=== PATIENT | male | born 1965 | race Hispanic/Latino ===

== ENCOUNTER → 2023-04-25 | Outpatient (CLI) | payer OTHER ==
[~2023-04-25] MED LIST: AMLO5TAB4 PO; ASPI-1443 PO; ATOR40TA71 PO; CARV12.580 PO; CLOP75TA32 PO; ESCI5TAB16 PO; HYDR25TA PO; LISI20TA24 PO; SPIR25TA6 PO; TICA90TA PO
[2023-04-25 11:46] LABS: CREATININE 1.3 mg/dL (0.5-1.5)
== END | disposition home or self-care (01) ==
LOC: LAB 10:55
PROVIDERS: ATTEND Student in an Organized Health Care Education/Training Program
DX: I25.10 Atherosclerotic heart disease of native coronary artery without angina pectoris (principal)
CPT/HCPCS: 36415; 80048

== ENCOUNTER → 2023-05-12 | Outpatient (CLI) | payer OTHER ==
[~2023-05-12] MED LIST changes: +IOHEXOL-350 75 ML VIAL IV ONE
== END | disposition home or self-care (01) ==
LOC: RAH 08:55
PROVIDERS: ATTEND Student in an Organized Health Care Education/Training Program
DX: R91.1 Solitary pulmonary nodule (principal); J44.9 Chronic obstructive pulmonary disease, unspecified; R06.02 Shortness of breath; M47.815 Spondylosis without myelopathy or radiculopathy, thoracolumbar region; M41.84 Other forms of scoliosis, thoracic region; I51.7 Cardiomegaly
CPT/HCPCS: 71270; Q9967

== ENCOUNTER → 2023-07-02 | Outpatient (CLI) | payer OTHER ==
[~2023-07-02] MED LIST changes: +IOHEXOL 350 MG/ML 100ML INFUS..BTL IV ONE; -IOHEXOL-350 75 ML VIAL IV ONE; +METOPROLOL TARTRATE 1 MG/ML 5ML VIAL IV ONE
== END | disposition home or self-care (01) ==
LOC: RAH 09:48
PROVIDERS: ATTEND Student in an Organized Health Care Education/Training Program
DX: I25.10 Atherosclerotic heart disease of native coronary artery without angina pectoris (principal); R06.00 Dyspnea, unspecified; R07.9 Chest pain, unspecified; Z95.1 Presence of aortocoronary bypass graft
CPT/HCPCS: 75574; J3490; Q9967

== ENCOUNTER 2024-11-02 05:42 | Day surgery (SDC) | payer OTHER ==
[2024-10-29 09:12] VITALS: BP 148/95; PULSE 74; RESP 16; TEMP 97.6
[2024-10-29 09:15] LABS: BASOPHILS # (AUTO) 0.05 K/uL (0.00-0.20); BASOPHILS % (AUTO) 0.8 % (0.0-5.0); EOSINOPHILS % (AUTO) 4.8 % (0.0-8.0); HEMATOCRIT 38.4 % (42-54); IMMATURE GRANULOCYTE ABSOLUTE 0.03 K/uL (0-1); LYMPHOCYTES # (AUTO) 2.3 K/uL (1.0-4.8); LYMPHOCYTES % (AUTO) 36.4 % (21.0-51.0); MEAN CORPUSCULAR HEMOGLOBIN 26.5 pg (27.0-33.0); MEAN CORPUSCULAR HGB CONC 34.4 g/dL (32.0-36.0); MEAN CORPUSCULAR VOLUME 77.1 fL (79-99); MONOCYTES # (AUTO) 0.5 K/uL (0.1-1.0); MONOCYTES % (AUTO) 8.2 % (3.0-13.0); NEUTROPHILS # (AUTO) 3.1 K/uL (1.8-7.7); NEUTROPHILS % (AUTO) 49.3 % (40.0-77.0); PLATELET COUNT (AUTO) 154 K/uL (130-400); RED BLOOD CELL COUNT(AUTO) 4.98 MIL/uL (4.50-6.20); RED CELL DISTRIBUTION WIDTH 12.8 % (11.0-15.5); WHITE BLOOD COUNT (AUTO) 6.2 K/uL (4.8-10.8)
[2024-10-29 09:16] LABS: ADD UA MICROSCOPIC NO; APPEARANCE,URINE CLEAR (CLEAR); BILIRUBIN,URINE NEGATIVE (NEGATIVE); COLOR,URINE LIGHT-YELLOW (YELLOW); GLUCOSE, URINE (UA) NEGATIVE (NEGATIVE); KETONES,URINE NEGATIVE (NEGATIVE); LEUKOCYTE ESTERASE ,URINE NEGATIVE Leu/uL (NEGATIVE); NITRATE,URINE NEGATIVE (NEGATIVE); OCCULT BLOOD,URINE NEGATIVE (NEGATIVE); PROTEIN,URINE NEGATIVE (NEGATIVE); UROBILINOGEN,URINE 0.2 mg/dL (0.2-1.0)
[2024-10-29 09:22] LABS: CREATININE 1.4 mg/dL (0.5-1.3); POTASSIUM 4.1 mmol/L (3.5-5.1)
[2024-10-29 09:25] LABS: INR 1.03 (0.85-1.15); PROTHROMBIN TIME 10.9 SEC (9.6-11.6)
[2024-10-29 09:26] LABS: PARTIAL THROMBOPLASTIN TIME 26.6 SEC (26.3-35.5)
[2024-10-29 09:43] LABS: B-TYPE NATRIURETIC PEPTIDE 13 pg/mL (0-100)
--- NOTE | 2024-10-29 09:45 | HMCIMG ---
Exam Type: CHEST 1VW Clinical Information: PRE OP Comparison: None Findings: There is status post median sternotomy. The lungs are clear of infiltrates. The heart is normal in size. Impression: Clear lungs.
--- NOTE | 2024-10-29 13:03 | EKG ---
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
--- NOTE | 2024-11-01 09:12 | NUR ---
RE: LABS REPORTED BMP RESULTS TO DR MIKE DOWNS, NO NEW ORDER RECEIVED.
[~2024-11-02] VITALS: Ht 180.3 cm; Wt 105.0 kg
[2024-11-02] VITALS (9 sets, daily range): BP systolic 136–169; BP diastolic 95–113; PULSE 67–81; RESP 9–19; TEMP 97.3–97.9
[~2024-11-02 05:42] MED LIST changes: +AMLO-258 PO; -AMLO5TAB4 PO; +CARV12.511 PO; -CARV12.580 PO; -CLOP75TA32 PO; -ESCI5TAB16 PO; -IOHEXOL 350 MG/ML 100ML INFUS..BTL IV ONE; +ISOS30TA92 PO; -METOPROLOL TARTRATE 1 MG/ML 5ML VIAL IV ONE; +RANO500T6 PO; -TICA90TA PO
[2024-11-02] MEDS: 0.9%NACL 1000ML 1,000 ML IV SCH (06:36)
[2024-11-02] MEDS ORDERED: LIDOCAINE HCL 400MG/20ML VIAL ONE (07:10)
[2024-11-02] MEDS ORDERED: VERAPAMIL HCL 2.5 MG/ML VIAL ONE (07:10)
[2024-11-02] MEDS ORDERED: HEParin 10,000 UNIT/10ML (1,000 UNIT/ML) VIAL ONE (07:10)
[2024-11-02] MEDS ORDERED: IOHEXOL 350 MG/ML 100ML INFUS..BTL IV ONE ×4 (07:10→09:21)
[2024-11-02] MEDS ORDERED: HEParin-NS 1,000 UNIT/500 ML 1,000 ML IV ONE (07:11)
[2024-11-02] MEDS ORDERED: NITROGLYCERIN 50MG VIAL ONE (07:12)
[2024-11-02] MEDS ORDERED: FENTanyl CITRate PF 50 MCG/1 ML 2ML VIAL ONE (07:23)
[2024-11-02] MEDS ORDERED: MIDAZOLAM HCL 1 MG/ML 2ML VIAL ONE ×3 (07:23→09:18)
[2024-11-02] MEDS ORDERED: HEParin-NS 1,000 UNIT/500 ML 500 ML IV ONE (08:24)
[2024-11-02] MEDS ORDERED: DOPamine HCL 400 MG/D5%-WATER 0 ML IV ONE (08:59)
[2024-11-02] MEDS ORDERED: cloPIDOgrel 300MG TAB ONE (09:17)
--- NOTE | 2024-11-02 09:50 | PRN ---
PROCEDURE REPORT DATE OF PROCEDURE: Nov 02, 2024 GENERATING STATION MECHANIC: [Mike dhillon MD ] PROCEDURE PERFORMED: Conscious sedation Ultrasound guided right femoral artery access Left heart catheterization Selective left coronary artery angiogram Selective right coronary artery angiogram Selective NULL angiogram Selective SVG to D1 angiogram Selective SVG to RCA angiogram IFR of the left circumflex (1.00 with no drift) Status post successful PTCA/PCI of the prox and mid ramus x2 (2.25 x 18 and 2.25 x 15 mm genoveva Toledo drug-eluting stent) Selective right femoral artery angiogram Perc-Closure device right femoral artery INDICATION: Refractory Angina DESCRIPTION OF PROCEDURE: After informed consent was obtained, the patient was prepped and draped in the usual sterile fashion. A 7 Togolese arterial sheath was inserted in the right femoral artery using a micropuncture technique and ultrasound guidance with first pass wall puncture. This was performed after fluoroscopic identification of bony landmarks to facilitate a more accurate puncture of the right common femoral artery. The arterial sheath was aspirated and flushed. A 6 Togolese JL-4 was then advanced to the ascending aorta over an exchange length J-tip guidewire, was aspirated and flushed, and was used for selective coronary angiograms in multiple obliquities. A JR-4 was advanced in a similar fashion to the ascending aorta over the J-tipped guidewire and was used for selective right coronary angiograms in multiple oblique views with findings as outlined below. The JR-4 catheter advanced into the LV and pressures were obtained with a pull- back across the aortic valve. We then used the JR4 catheter to select engage the SVG to RCA graft followed by angiographic images. We used the JR4 catheter select engage the SVG to D1 graft which was found to be occluded. We then used the JR4 catheter to selectively engage the left subclavian and then we exchanged the JR4 catheter for a five Togolese IM catheter which was used to select engage the NULL graft followed by multiple angiographic images. Following review of the images decision was made to further interrogate patient's moderate mid circumflex stenosis. We exchanged the diagnostic catheters for a seven Togolese XB 3.5 guide catheter which was advanced over the wire similar fashion used to engage the left main coronary artery. We provided intracoronary nitroglycerin and We then advanced an IFR wire and following normalization we traversed the lesion and performed hemodynamic assessment revealing an IFR of 1.00 with no drift and 1.01 with no drift. At this time decision was made to intervene on patient's critical ramus intermedius stenosis. We removed the IFR wire and advanced a 014 Prowater into the distal ramus intermedius. We pre-dilated the prox ramus intermedius using a 2.0 x 15 mm compliant balloon to nominal pressures. We deployed a 2.25 x 18 mm genoveva Toledo drug-eluting stent in the proximal ramus intermedius to nominal pressures. This was then post dilated with a 2.5 x 15 mm noncompliant balloon to nominal pressures. We noted a distal dissection caused by the wire so we advanced the FineCross microcatheter over the wire and performed a distal tip injection to confirm we are true lumen. We then exchanged the Prowater for a run-through wire and advanced it into the distal ramus intermedius and then we removed the FineCross microcatheter. We then direct stented the mid to distal ramus intermedius using a 2.25 x 15 mm genoveva Toledo drug-eluting stent to nominal pressures. This was then post dilated using a 2.25 x 15 mm noncompliant balloon to nominal pressures. We provided additional intracoronary nitroglycerin and final angiogram revealed anglican of brisk flow/KATJA three flow with no dissections or perforations. At this time all wires and catheters removed from the body. A right common femoral angiogram was performed as a suitability for closure suture closure and the Perclose device was deployed in standard fashion. Perclose suture closure was accessed without bleeding or hematoma. The patient tolerated the procedure well and was returned to the holding area in stable condition. FLUOROSCOPY TIME: 30.2 min LEFT HEART HEMODYNAMICS: LVEDP 19 mm Hg and no gradient Ao CORONARY ANGIOGRAM: LEFT MAIN: Patent and 0% stenosis. Gives rise to LCx, RI and LAD. LEFT ANTERIOR DESCENDING: Large vessel giving rise to two Diagonal branches. 60-70 % proximal stenosis becoming 90-95% in the mid segment. There was competitive flow distally via patent NULL graft. The diagonal is small and patent. RAMUS INTERMEDIUS: Severe 90% proximal and 80% mid stenosis. LEFT CIRCUMFLEX: Large and gives rise to two OM branches. 40-50% mid circumflex stenosis (IFR of 1.01 with no drift). Om two has mild diffuse disease. RIGHT CORONARY ARTERY: Large, dominant vessel giving rise to PDA and PL branches. Calcified with 90- 95% proximal stenosis becoming 67% in the mid to distal segment. PDA has 70-80% proximal stenosis. NULL-LAD: Widely patent SVG-PDA: Patent SVG-D1: Occluded SVG-OM: Occluded SVG-RI: Occluded. 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 Patient require 12 months of dap (aspirin 81 mg daily/Plavix 75 mg daily) in addition to high-intensity statin therapy and aggressive antianginal CONTRAST DELIVERED TO PATIENT (mL): 360cc MIKE Joshua MD, MD Nov 02, 2024 09:50
[2024-11-02] MEDS ORDERED: 0.9%NACL 1000ML 1,000 ML IV SCH (10:00)
[2024-11-02] MEDS ORDERED: DEXTROSE 50%-WATER 50 ML DISP.SYRIN IV PRN (10:00)
[2024-11-02] MEDS ORDERED: GLUCAGON 1MG KIT 1 MG ML IM PRN (10:00)
--- NOTE | 2024-11-02 10:48 | NUR ---
URINARY: VOIDED 500CC CLEAR YELLOW COLOR URINE PER URINAL WITHOUT DIFFICULTY.
--- NOTE | 2024-11-02 10:58 | NUR ---
BP: DR. DOWNS MADE AWARE OF DIASTOLIC READINGS 90'S - 110, PT CAME IN WITH A DIASTOLIC OF 97. NO ORDERS GIVEN.
--- NOTE | 2024-11-02 12:56 | NUR ---
urinary: voided 350 cc clear yellow urine per urinal without difficulty
== END 2024-11-02 13:25 | disposition home or self-care (01) ==
LOC: DAH 05:42
PROVIDERS: ATTEND Student in an Organized Health Care Education/Training Program
DX: I25.112 Atherosclerotic heart disease of native coronary artery with refractory angina pectoris (principal); I25.702 Atherosclerosis of coronary artery bypass graft(s), unspecified, with refractory angina pectoris; I11.0 Hypertensive heart disease with heart failure; I50.22 Chronic systolic (congestive) heart failure; E78.5 Hyperlipidemia, unspecified; I25.2 Old myocardial infarction; I25.5 Ischemic cardiomyopathy; Z98.890 Other specified postprocedural states; Z79.82 Long term (current) use of aspirin; Z79.899 Other long term (current) drug therapy
CPT/HCPCS: 80048; 83880; 85025; 85610; 85730; 81003; 36415; 71045; 93005; 93571; 85347 ×2; 93459; 99157 ×5; 99156; C9600; C1769 ×4; C1894 ×2; C1725 ×3; C1874 ×2; C1760; C1887 ×2; J3010; J3490 ×2; J1644 ×3; J2250 ×3; Q9967 ×4; A4215; A4222; A4221; A4663; A4216; A4606; Q9965 ×4; A4223 ×3; 96360; 96361; J1265